=== PATIENT | male | born 1945 | race Caucasian/White ===

== ENCOUNTER 2018-01-28 06:42 | Day surgery (SDC) | payer OTHER ==
[~2018-01-28 06:42] MED LIST: ASPIR 8181 MG PO; FORTAMET500 MG PO; LOPRE PO; PLAVIX75 MG PO; ZESTRIL5 MG PO; ZOCOR40 MG PO
[2018-01-28] MEDS ORDERED: TRAM1TAB98 PO (09:21)
[2018-01-28] MEDS ORDERED: DUI500 PO (09:21)
== END 2018-01-28 12:35 | disposition home or self-care (01) ==
LOC: CIR.AMB 06:42
DX: M23.322 Other meniscus derangements, posterior horn of medial meniscus, left knee (principal); M65.862 Other synovitis and tenosynovitis, left lower leg; M94.262 Chondromalacia, left knee